=== PATIENT | female | born 1945 | race Caucasian/White ===

== ENCOUNTER 2024-09-11 13:00 | Outpatient (RCR) | payer MEDICARE, OTHER, SELFPAY | END 2024-09-11 23:59 | disposition home or self-care (01) | LOC: PURB 13:00 | PROVIDERS: ATTENDING PHYSICIAN Internal Medicine Pulmonary Disease | DX: J44.9 Chronic obstructive pulmonary disease, unspecified (principal) | CPT/HCPCS: G0237 ==

== ENCOUNTER 2024-10-16 14:45 | Outpatient (RCR) | payer MEDICARE, OTHER, SELFPAY | END 2024-10-19 23:59 | disposition home or self-care (01) | LOC: PURB 14:45 | PROVIDERS: ATTENDING PHYSICIAN Internal Medicine Pulmonary Disease | DX: J44.9 Chronic obstructive pulmonary disease, unspecified (principal) | CPT/HCPCS: 94625 ==

== ENCOUNTER 2024-11-18 14:45 | Outpatient (RCR) | payer MEDICARE, OTHER, SELFPAY | END 2024-11-18 23:59 | disposition home or self-care (01) | LOC: PURB 14:45 | PROVIDERS: ATTENDING PHYSICIAN Internal Medicine Pulmonary Disease | DX: J44.9 Chronic obstructive pulmonary disease, unspecified (principal) | CPT/HCPCS: 94625 ==

== ENCOUNTER 2024-12-18 14:45 | Outpatient (RCR) | payer MEDICARE, OTHER, SELFPAY | END 2024-12-18 23:59 | disposition home or self-care (01) | LOC: PURB 14:45 | PROVIDERS: ATTENDING PHYSICIAN Internal Medicine Pulmonary Disease | DX: J44.9 Chronic obstructive pulmonary disease, unspecified (principal) | CPT/HCPCS: 94625 ==

== ENCOUNTER 2025-01-01 14:45 | Outpatient (RCR) | payer MEDICARE, OTHER, SELFPAY | END 2025-01-02 09:37 | disposition home or self-care (01) | LOC: PURB 14:45 | PROVIDERS: ATTENDING PHYSICIAN Internal Medicine Pulmonary Disease | DX: J44.9 Chronic obstructive pulmonary disease, unspecified (principal) | CPT/HCPCS: 94625 ==